=== PATIENT | male | born 1960 | race Caucasian/White ===

== ENCOUNTER 2016-12-09 13:29 | Emergency (ER) | payer OTHER ==
[~2016-12-09] VITALS: Ht 177.8 cm; Wt 97.5 kg
[~2016-12-09 13:29] MED LIST: CIPRO500 M1 PO; FLOMAX0.4 M1 PO; LISINOPRIL-HCT1 EAC1 PO; PERCOCET 5-3251 EACH PO; ZOFRAN ODT4 M1 PO
--- NOTE | 2016-12-09 13:54 | ED GI/GU/ABDOMINAL COMPLAINT ---
History of Present Illness General Chief Complaint: General Adult Stated Complaint: HX OF KIDNEYSTONES LEFT FLANK PAIN Source: patient Exam Limitations: no limitations Vital Signs & Intake/Output Vital Signs & Intake/Output Vital Signs Date Time Temp Pulse Resp B/P B/P Pulse O2 O2 Flow FiO2 Mean Ox Delivery Rate 12/09 1656 97.0 67 20 163/95 98 Room Air 12/09 1525 97.1 69 18 144/78 97 Room Air 12/09 1332 97.0 86 16 174/122 97 Room Air Allergies Coded Allergies: NO KNOWN ALLERGIES (11/30/11) Reconcile Medications Lisinopril/Hydrochlorothiazide (Lisinopril-Hctz 20-25 MG Tab) 20 MG-25 MG TABLET 1 TAB PO DAILY HIGH BLOOD PRESSURE (Reported) Oxycodone HCl/Acetaminophen (Percocet 5-325 MG Tablet) 5 MG-325 MG TABLET 1 TAB PO Q4-6 PRN PAIN Oxycodone HCl/Acetaminophen (Percocet 5-325 MG Tablet) 5 MG-325 MG TABLET 1-2 TAB PO Q6P PRN pain Tamsulosin HCl (Flomax) 0.4 MG CAP.ER.24H 2 CAP PO DAILY KIDNEY STONE Tamsulosin HCl (Flomax) 0.4 MG CAP.ER.24H 1 CAP PO DAILY kidney stoner Triage Note: 56 Y/O MALE C/O L FLANK PAIN X 1 WEEK; HX KIDNEY STONES AND STATES THIS FEELS THE SAME. TOOK 1 PERCOCET AROUND 0900 WITH GOOD RELIEF. STATES LAST BM 9 DAYS AGO WELL. DENIES URINARY SYMPTOMS. Triage Nurses Notes Reviewed? yes Onset: Abrupt Duration: week(s): (1), constant, continues in ED Timing: recent history Quality/Severity: moderate, sharpness, severe Location: left flank No Modifying Factors: none HPI: 56-year-old male comes in see emergency room for further evaluation of left flank pain. Pain is sharp. Radiates around to the side of abdomen. Pain is due to fluid fell asleep. History of kidney stones. Nothing seems to make the symptoms better or worse. Patient reports she's been feeling nauseous. Associated blood in his urine. Pain moderate to severe. Past History Travel History Traveled to [place] past 21 day No Medical History Any Pertinent Medical History? 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 No Review of Systems Review of Systems Constitutional: Reports: no symptoms. EENTM: Reports: no symptoms. Respiratory: Reports: no symptoms. Cardiovascular: Reports: no symptoms. GI: Reports: no symptoms. Genitourinary: Reports: see HPI. Musculoskeletal: Reports: see HPI. Skin: Reports: no symptoms. Neurological/Psychological: Reports: no symptoms. Hematologic/Endocrine: Reports: no symptoms. Immunologic/Allergic: Reports: no symptoms. All Other Systems: Reviewed and Negative Physical Exam Physical Exam General Appearance: well developed/nourished, no apparent distress, alert, awake Head: atraumatic, normal appearance Eyes: Bilateral: normal appearance, EOMI. Ears, Nose, Throat, Mouth: hearing grossly normal, moist mucous membrane Neck: normal inspection, full range of motion Respiratory: normal breath sounds, no respiratory distress Cardiovascular: regular rate/rhythm Gastrointestinal: soft, non-tender Back: normal inspection, normal range of motion, no CVA tenderness Extremities: normal range of motion Neurologic/Psych: awake, alert, oriented x 3, normal gait Skin: intact, normal color Core Measures ACS in differential dx? No Severe Sepsis Present: No Septic Shock Present: No Progress Differential Diagnosis: appendicitis, biliary colic, cholecystitis, diverticulitis, epididymitis, pancreatitis, prostatitis, peptic ulcer, PUD/GERD, perforated viscous, pyelonephritis, ureterolithiasis, urinary retention, urethritis, UTI/pyelo Plan of Care: Orders Procedure Date/time Status Add-on Test (ER Only) 12/09 1650 Active COMPREHENSIVE METABOLIC PANEL 12/09 1353 Complete CBC WITHOUT DIFFERENTIAL 12/09 1353 Complete CULTURE,URINE 12/09 1343 Active URINALYSIS 12/09 1341 Complete Laboratory Tests 12/09/16 1406: Anion Gap 15, Estimated GFR 35 L, BUN/Creatinine Ratio 11.5, Glucose 99, Calcium 9.7, Total Bilirubin 1.8 H, AST 22, ALT 35, Alkaline Phosphatase 87, Total Protein 7.7, Albumin 4.3, Globulin 3.4, Albumin/Globulin Ratio 1.3, CBC w Diff NO MAN DIFF REQ, RBC 5.80, MCV 98.2 H, MCH 32.8 H, RDW 12.6, MPV 8.3, Gran % 79.1 H, Lymphocytes % 11.6 L, Monocytes % 8.2, Eosinophils % 0.9, Basophils % 0.2, Absolute Granulocytes 8.5 H, Absolute Lymphocytes 1.2, Absolute Monocytes 0.9 H, Absolute Eosinophils 0.1, Absolute Basophils 0, PUBS MCHC 33.4 12/09/16 1343: Urinalysis LIGHT H, Urine Color YEL, Urine Clarity CLDY H, Urine pH 5.5, Ur Specific Ernul >= 1.030, Urine Protein 100 H, Urine Ketones 15 H, Urine Nitrite NEG, Urine Bilirubin NEG@ICTO, Urine Urobilinogen 1.0, Ur Leukocyte Esterase TRACE H, Ur Microscopic SEDIMENT EXAMINED, Urine RBC >75 H, Urine WBC 1-3 H, Urine Bacteria FEW H, Urine Mucus FEW, Urine Hemoglobin LARGE H, Urine Glucose NEG Microbiology 12/09 1343 URINE ROUT: Urine Culture - RECD Diagnostic Imaging: Viewed by Me: CT Scan. Discussed w/RAD: CT Scan. Radiology Impression: EXAM TYPE: CAT - CT ABD & PELVIS W/O IV CONTRAS EXAMINATION: CT ABDOMEN AND PELVIS WITHOUT CONTRAST CLINICAL INFORMATION: Left- sided pain. Evaluate for kidney stone. COMPARISON: CT scan of the abdomen and pelvis dated 06/25/2016 and 08/17/2012. TECHNIQUE: Multidetector volumetric imaging was performed from the superior aspect of the liver through the pubic symphysis. Sagittal and coronal reformatted images were obtained on the technologist workstation. DLP: 926.35 mGy-cm. FINDINGS: LUNG BASES: The visualized lung bases are unremarkable. LIVER, GALLBLADDER, AND BILIARY TREE: The liver is normal in size, shape, and attenuation. No focal hepatic lesion on noncontrast imaging. No biliary ductal dilatation is present. The gallbladder is unremarkable with no evidence of radiopaque gallstones, gallbladder wall thickening, or obvious pericholecystic inflammatory changes. PANCREAS, SPLEEN, ADRENAL GLANDS: Unremarkable on noncontrast imaging. KIDNEYS AND URETERS: The right kidney is normal in size, shape, and attenuation. No right-sided hydronephrosis, hydroureter, perinephric stranding, or calculi seen. The right ureter is unremarkable. There is enlargement of the left kidney with moderate left-sided hydronephrosis and hydroureter seen with dilatation of the left ureter down to the mid pelvis where a 0.8 x 0.6 cm calcification is seen with mean attenuation values of 297 Hounsfield units, consistent with a uric acid stone. On previous CT scan, in a similar location, a 0.7 x 0.4 cm calcification was seen. The left ureter distal to this calcification is completely decompressed. There is a nonobstructing 0.3 cm upper pole left renal calcification (series 602, image 68) . No other renal calculi seen. There is an exophytic 1.2 x 1.1 cm intermediate attenuation mass seen arising from the lower pole of the left kidney, unchanged from prior exam and not definitely seen in 2013. This does not meet criteria for a simple cyst on this exam and may potentially represent a hyperdense cyst or other renal mass. BLADDER: Some layering calcification is again seen in the posterior right side of the bladder, near the right ureterovesical junction, similar to prior exam. Bladder is otherwise unremarkable in its partially distended state. GASTROINTESTINAL TRACT: The small and large bowel are unremarkable, except for several scattered sigmoid and distal descending colonic diverticula. No acute diverticulitis. The appendix is unremarkable. ABDOMINAL WALL: There is a tiny fat-containing umbilical hernia. LYMPH NODES, VASCULAR: Unremarkable. PELVIC VISCERA: Unremarkable. OSSEOUS STRUCTURES: Moderate degenerative changes are seen in the lower thoracic and the mid and lower lumbar spine. IMPRESSION: 1. Moderate left-sided hydroureteronephrosis due to an obstructing 0.8 x 0.6 cm calcification in the distal left ureter, likely a uric acid stone. This stone appears larger than on the 06/25/2016 CT scan. 2. Nonobstructing 0.3 cm upper pole left renal calcification. No other renal calculi. 3. Indeterminate exophytic low-attenuation mass in the lower pole of the left kidney, unchanged from 06/25/2016 and not definitely seen on 2012. Findings may represent a hyperdense cyst or other low-grade mass. Consider further assessment with renal MRI scan with and without contrast. 4. Layering calcification in the posterior right side of the bladder. 5. Colonic diverticulosis. DICTATED BY: SONY AGUILAR,FARTUN N. DATE/TIME DICTATED:12/09/161421 C ARCHITECT:MINDY DATE/TIME TRANSCRIBED:12/09/161421 CONFIDENTIAL, DO NOT COPY WITHOUT APPROPRIATE AUTHORIZATION. Initial ED EKG: none Departure Departure Disposition: HOME OR SELF CARE Condition: Stable Clinical Impression Primary Impression: Kidney stone on left side Referrals: SHALINI AGUILAR,ALISSA FLEMING MD,MARC Farnsworth (PCP/Family) Additional Instructions: Take Percocet and Flomax as prescribed. Your urologist is going to set up lithotripsy and possibly stenting on of this week. Contact their office tomorrow. Return if any other concerns worsening symptoms. Drink plenty of fluids. Please go over all results of today's visit with your primary care doctor. Contact your primary care doctor to let them know you were here in the emergency room. There may be nonspecific findings which may not be related to your visit today here in the emergency room but may require further evaluation and chronic monitoring by your primary care doctor. If you had a laceration today the chance of foreign body always remains. You should follow-up with your primary care doctor for recheck in 3-5 days for a wound check. If you had an x-ray done there is a chance that a fracture could have been missed on initial read and you should follow-up with your primary care doctor for repeat x-rays if symptoms persist. If your blood pressure was elevated here in the emergency room please have rechecked by her primary care doctor within the next 48 hours by your primary care doctor. If you were prescribed a narcotic here in the emergency room or any type of controlled substances you're not allowed to drive while taking this medication or operate any type of heavy machinery. Narcotics can make you feel lightheaded dizziness nausea and can cause constipation. You may need to picker tender helper a stool softener. Thank you for choosing [facility] emergency room. Please return to the emergency room immediately if you have any other concerns worsening of symptoms. Departure Forms: Customer Survey General Discharge Information Prescriptions: Current Visit Scripts Oxycodone HCl/Acetaminophen (Percocet 5-325 MG Tablet) 1-2 TAB PO Q6P PRN pain #20 TAB Tamsulosin HCl (Flomax) 1 CAP PO DAILY #10 CAP Comments 12/09/2016 4:59:23 PM Patient clinically looks well. Patient is nontoxic-appearing. Patient is in no apparent distress. Patient's pain has completely resolved. I spoke with Dr. jimenez. He is going to schedule the patient for the OR on . Patient will go home at this time. He will follow the creatinine. Patient understands and agrees with plan of care.
[2016-12-09 14:21] LABS: ABSOLUTE BASOPHIL COUNT 0 /CUMM (0.0-0.2); ABSOLUTE EOSINOPHIL COUNT 0.1 /CUMM (0.0-0.7); ABSOLUTE GRANULOCYTE CT 8.5 /CUMM (1.4-6.5); ABSOLUTE LYMPH COUNT 1.2 /CUMM (1.2-3.4); ABSOLUTE MONOCYTE COUNT 0.9 /CUMM (0.10-0.60); BASOPHIL % 0.2 % (0.0-2.0); EOSINOPHIL % 0.9 % (0-5); GRANULOCYTE % 79.1 % (42.2-75.2); MEAN CORPUSCULAR HGB 32.8 PG (27.0-31.0); MEAN CORPUSCULAR HGB CONC 33.4 G/DL (33.0-37.0); MEAN CORPUSCULAR VOLUME 98.2 FL (80.0-94.0); MEAN PLATELET VOLUME 8.3 FL (7.4-10.4); PLATELET COUNT 325 /CUMM (130-400); RBC DISTRIBUTION WIDTH 12.6 % (11.5-14.5); WHITE BLOOD CELL COUNT 10.8 /CUMM (4.8-10.8)
--- NOTE | 2016-12-09 14:49 | CT SCAN REPORT ---
EXAMINATION: CT ABDOMEN AND PELVIS WITHOUT CONTRAST CLINICAL INFORMATION: Left-sided pain. Evaluate for kidney stone. COMPARISON: CT scan of the abdomen and pelvis dated 06/25/2016 and 08/17/2012. TECHNIQUE: Multidetector volumetric imaging was performed from the superior aspect of the liver through the pubic symphysis. Sagittal and coronal reformatted images were obtained on the technologist workstation. DLP: 926.35 mGy-cm. FINDINGS: LUNG BASES: The visualized lung bases are unremarkable. LIVER, GALLBLADDER, AND BILIARY TREE: The liver is normal in size, shape, and attenuation. No focal hepatic lesion on noncontrast imaging. No biliary ductal dilatation is present. The gallbladder is unremarkable with no evidence of radiopaque gallstones, gallbladder wall thickening, or obvious pericholecystic inflammatory changes. PANCREAS, SPLEEN, ADRENAL GLANDS: Unremarkable on noncontrast imaging. KIDNEYS AND URETERS: The right kidney is normal in size, shape, and attenuation. No right-sided hydronephrosis, hydroureter, perinephric stranding, or calculi seen. The right ureter is unremarkable. There is enlargement of the left kidney with moderate left-sided hydronephrosis and hydroureter seen with dilatation of the left ureter down to the mid pelvis where a 0.8 x 0.6 cm calcification is seen with mean attenuation values of 297 Hounsfield units, consistent with a uric acid stone. On previous CT scan, in a similar location, a 0.7 x 0.4 cm calcification was seen. The left ureter distal to this calcification is completely decompressed. There is a nonobstructing 0.3 cm upper pole left renal calcification (series 602, image 68). No other renal calculi seen. There is an exophytic 1.2 x 1.1 cm intermediate attenuation mass seen arising from the lower pole of the left kidney, unchanged from prior exam and not definitely seen in 2013. This does not meet criteria for a simple cyst on this exam and may potentially represent a hyperdense cyst or other renal mass. BLADDER: Some layering calcification is again seen in the posterior right side of the bladder, near the right ureterovesical junction, similar to prior exam. Bladder is otherwise unremarkable in its partially distended state. GASTROINTESTINAL TRACT: The small and large bowel are unremarkable, except for several scattered sigmoid and distal descending colonic diverticula. No acute diverticulitis. The appendix is unremarkable. ABDOMINAL WALL: There is a tiny fat-containing umbilical hernia. LYMPH NODES, VASCULAR: Unremarkable. PELVIC VISCERA: Unremarkable. OSSEOUS STRUCTURES: Moderate degenerative changes are seen in the lower thoracic and the mid and lower lumbar spine. IMPRESSION: 1. Moderate left-sided hydroureteronephrosis due to an obstructing 0.8 x 0.6 cm calcification in the distal left ureter, likely a uric acid stone. This stone appears larger than on the 06/25/2016 CT scan. 2. Nonobstructing 0.3 cm upper pole left renal calcification. No other renal calculi. 3. Indeterminate exophytic low-attenuation mass in the lower pole of the left kidney, unchanged from 06/25/2016 and not definitely seen on 08/17/2012. Findings may represent a hyperdense cyst or other low-grade mass. Consider further assessment with renal MRI scan with and without contrast. 4. Layering calcification in the posterior right side of the bladder. 5. Colonic diverticulosis.
[2016-12-09 16:56] VITALS: BP 163/95
[2016-12-09] MEDS ORDERED: FLOMAX0.4 M1 PO (16:56)
[2016-12-09] MEDS ORDERED: PERCOCET 5-3251 EACH PO (16:56)
[2016-12-12] MEDS ORDERED: LISINOPRIL-HCT1 EAC1 PO (10:56)
[2016-12-12] MEDS ORDERED: ZOFRAN4 M2 PO (10:57)
== END 2016-12-09 17:10 ==
LOC: ERH 13:29
PROVIDERS: Physician Assistant Medical
DX: N20.0 Calculus of kidney (principal)
CPT/HCPCS: 74176; 81001; 87086; 96374; J1885

== ENCOUNTER → 2016-12-15 | Day surgery (SDC) | payer OTHER ==
[~2016-12-15] VITALS: Ht 177.8 cm; Wt 97.5 kg
[~2016-12-15] MED LIST changes: +ZOFRAN4 M2 PO
--- NOTE | 2016-12-15 08:54 | Operative Report ---
Operative/Inv Procedure Report Surgery Date: 12/15/16 Name of Procedure: Cystoscopy, L ureteroscopy, laser lithotripsy of L distal ureteral stone, L retrograde pyelogram, insertion of L ureteral stent Pre-Operative Diagnosis: Distal ureteral calculus Post-Operative Diagnosis: Same Estimated Blood Loss: scant Surgeon/Plant Safety Leader: Mayra AGUILAR,ALISSA Velázquez Anesthesia: laryngeal mask airway Drains: 24 cm 6 [place] left double-J ureteral stent Specimens: Left ureteral stone fragments Complications: None Condition: Stable Operative Indication: Left distal ureteral stone with left flank pain and left hydronephrosis as seen on CT scan Operative/Procedure Note Note: The patient was taken to the cystoscopy room and identified. He is placed in supine position on the cystoscopy table. A timeout was executed appropriately with the patient awake. Gen. anesthesia was induced via LMA. He was then placed in the dorsolithotomy position and prepped and draped in usual fashion for cystoscopy. Surgical pause was executed appropriately. A fluoroscopy images taken with a marker on the left side of the abdomen to confirm the correct side of the surgery as well as the correct orientation of the fluoroscopy image. The 22 [place] cystoscope sheath was placed into the bladder under direct vision using the 30 lens. Anterior urethra was normal. Prostatic urethra showed mild prostatic hypertrophy. The middle lobe was somewhat enlarged. Upon entering the bladder cystoscopy was performed. The bladder was mildly trabeculated. There are multiple small stone fragments in the bladder which were yellowish in appearance and likely uric acid. Both ureteral orifices were normal in location and appearance. There was no evidence of bladder tumor. Left ureteral orifice was then intubated with a guidewire which was advanced up the level of the left kidney. The cystoscope was removed leaving the wire in place. The short rigid ureteroscope was then placed through the urethra into the bladder and into the left ureter. Several centimeters proximal to the ureterovesical junction about an 8 mm yellowish appearing stone was noted. Was not really radiopaque on the fluoroscopy image. The 400 laser fiber was placed through the ureteroscope and the stone fragmented into multiple small fragments. Spiral basket was used to extract the fragments. Several fragments were removed and sent for stone analysis. The remainder were dropped in the bladder. At this point the ureteroscope was advanced up to the proximal ureter. The ureter was dilated proximal to where the stone was located. However there were no other stone seen. Some contrast was injected to outline the left renal collecting system. The ureteroscope was then removed. As this was done the ureter was inspected and there were no stone fragments remaining in the ureter. The cystoscope was then back loaded onto the guidewire. The cystoscope was advanced into the bladder. Under visual fluoroscopic control a 24 cm 6 [place] left double-J stent was placed. One this was located in the correct position the guidewire was removed. Fluoroscopy confirmed the proximal and the stent coiled in the renal pelvis and the distal end coiled in the bladder. A long suture was left attached the distal end of the stent exiting the urethra. Using the [employer] evacuator the stone fragments in the bladder were irrigated out. The bladder was drained and cystoscope removed. Patient tolerated the procedure well and as completion was taken recovery room in stable condition. Findings: 8mm stone in the left distal ureter with proximal hydroureteronephrosis Discharge Disposition: PACU
--- NOTE | 2016-12-15 17:58 | RADIOLOGY REPORT ---
EXAMINATION: XR ABDOMEN CLINICAL INDICATION: Left ureteroscopy with stone retrieval and stent. COMPARISON: CT abdomen and pelvis 12/09/2016. TECHNIQUE: 4 digital spot fluoroscopic radiographs are submitted. FLUOROSCOPY TIME: Total fluoroscopy time is documented as 33 seconds. FINDINGS: Sequential images demonstrate placement of a wire and catheter within the left ureter with final images demonstrating a left ureteral vesicular catheter traversing the expected course of the left ureter. Contrast material is noted within the left renal collecting system which demonstrates probable left renal pelviectasis. IMPRESSION: Intraprocedural digital spot fluoroscopic radiographs as described above.
== END ==
LOC: STS 01:55
DX: N13.2 Hydronephrosis with renal and ureteral calculous obstruction (principal); I10 Essential (primary) hypertension
CPT/HCPCS: 74000; 82355; C2617; J0131; J0690; J2250